=== PATIENT | female | born 1995 | race Caucasian/White ===

== ENCOUNTER → 2017-10-21 | Outpatient (CLI) | payer MEDICAID | LOC: COL.RAD 10-15 14:45 | DX: D48.0 Neoplasm of uncertain behavior of bone and articular cartilage (principal) | CPT/HCPCS: A9585 ==

== ENCOUNTER → 2017-11-30 | Outpatient (CLI) | payer MEDICAID | LOC: COL.RAD 14:11 | DX: N88.8 Other specified noninflammatory disorders of cervix uteri (principal); Z97.5 Presence of (intrauterine) contraceptive device ==

== ENCOUNTER 2018-04-28 09:30 | Outpatient (RCR) | payer MEDICAID | END 2018-05-01 | disposition home or self-care (01) | LOC: MKS.ESL.PT | DX: Z47.89 Encounter for other orthopedic aftercare (principal); Z86.018 Personal history of other benign neoplasm ==

== ENCOUNTER 2018-05-26 09:15 | Outpatient (RCR) | payer MEDICAID | END 2018-06-28 15:57 | disposition home or self-care (01) | LOC: MKS.ESL.PT 09:15 | DX: Z48.3 Aftercare following surgery for neoplasm (principal); C40.22 Malignant neoplasm of long bones of left lower limb ==

== ENCOUNTER 2018-10-24 09:30 | Outpatient (RCR) | payer MEDICAID | END 2018-10-30 | disposition still patient (30) | LOC: MKS.ESL.PT | DX: S83.242D Other tear of medial meniscus, current injury, left knee, subsequent encounter (principal) ==

== ENCOUNTER 2018-12-14 09:00 | Outpatient (RCR) | payer MEDICAID | END 2019-01-29 | disposition still patient (30) | LOC: MKS.ESL.PT | DX: M76.62 Achilles tendinitis, left leg (principal) ==

== ENCOUNTER 2019-02-02 08:00 | Outpatient (RCR) | payer MEDICAID | END 2019-03-27 12:29 | disposition home or self-care (01) | LOC: MKS.ESL.PT 08:00 | DX: M76.62 Achilles tendinitis, left leg (principal) ==

== ENCOUNTER → 2020-01-24 | Outpatient (CLI) | payer MEDICAID | LOC: COL.RAD 01-19 13:30 | DX: J32.1 Chronic frontal sinusitis (principal) ==

== ENCOUNTER → 2020-04-02 | Outpatient (CLI) | payer MEDICAID | LOC: ZCOL.LAB 16:55 | DX: J02.9 Acute pharyngitis, unspecified (principal); Z20.828 Contact with and (suspected) exposure to other viral communicable diseases ==

== ENCOUNTER 2020-07-31 12:45 | Outpatient (RCR) | payer OTHER | END 2020-10-15 | disposition home or self-care (01) | LOC: WSOH | DX: S46.912A Strain of unspecified muscle, fascia and tendon at shoulder and upper arm level, left arm, initial encounter (principal); J45.909 Unspecified asthma, uncomplicated; D48.1 Neoplasm of uncertain behavior of connective and other soft tissue; M65.80 Other synovitis and tenosynovitis, unspecified site; Z90.89 Acquired absence of other organs; Z98.890 Other specified postprocedural states; Z87.59 Personal history of other complications of pregnancy, childbirth and the puerperium; Y99.0 Civilian activity done for income or pay ==

== ENCOUNTER → 2020-10-23 | Outpatient (CLI) | payer MEDICAID | LOC: COL.RAD 10:24 | DX: M97.8XXA Periprosthetic fracture around other internal prosthetic joint, initial encounter (principal); Z96.652 Presence of left artificial knee joint; W19.XXXA Unspecified fall, initial encounter; Z98.890 Other specified postprocedural states ==

== ENCOUNTER → 2021-05-23 | Outpatient (CLI) | payer MEDICAID | LOC: MC.RAD 05-22 07:00 | DX: N63.10 Unspecified lump in the right breast, unspecified quadrant (principal) ==

== ENCOUNTER 2022-02-18 09:21 | Emergency (ER) | payer MEDICAID ==
[~2022-02-18] VITALS: Ht 157.5 cm; Wt 88.6 kg
[2022-02-18 09:31] VITALS: TEMP 98.2
[2022-02-18 11:20] VITALS: BP 128/75; PULSE 82
== END 2022-02-18 11:20 | disposition home or self-care (01) ==
LOC: COL.ER 09:21
DX: M79.89 Other specified soft tissue disorders (principal); M79.662 Pain in left lower leg; M25.462 Effusion, left knee; Z98.890 Other specified postprocedural states

== ENCOUNTER → 2022-02-18 | Outpatient (CLI) | payer MEDICAID | LOC: COL.RAD 11:35 | DX: M79.605 Pain in left leg (principal); Z96.652 Presence of left artificial knee joint ==

== ENCOUNTER → 2022-02-19 | Outpatient (CLI) | payer MEDICAID ==
[2022-02-19 13:27] LABS: BASO % 0.5 % (0.0-2.0); EOS # 0.2 K/mm3 (0.0-0.7); EOS % 2.4 % (0.0-4.0); GRAN # 5.1 K/mm3 (1.4-6.5); GRAN % 63.6 % (42.2-75.2); HEMATOCRIT 45.5 % (37.0-47.0); HEMOGLOBIN 15.1 g/dl (12.5-16.0); LYMPH # 2.2 K/mm3 (1.2-3.4); LYMPH % 27.6 % (20.0-51.0); MEAN CELL VOLUME 89 fl (80.0-100.0); MEAN CORPUSCULAR HEMOGLOBIN 30 pg (27-31); MEAN CORPUSCULAR HGB CONC 33 g/dl (33.0-37.0); MONO # 0.4 K/mm3 (0.1-0.6); MONO % 5.5 % (1.7-9.3); PLATELET COUNT 275 K/mm3 (130-400); RED BLOOD COUNT 5.12 M/mm3 (4.10-5.30); REDCELL DISTRIBUTION WIDTH-CV 11.9 % (11.5-14.5)
== END ==
LOC: COL.LAB 12:11
PROVIDERS: Orthopaedic Surgery
DX: Z96.652 Presence of left artificial knee joint (principal)

== ENCOUNTER → 2022-02-26 | Outpatient (CLI) | payer MEDICAID | LOC: COL.VAS 11:12 | DX: I82.812 Embolism and thrombosis of superficial veins of left lower extremity (principal) ==

== ENCOUNTER → 2022-03-06 | Outpatient (CLI) | payer MEDICAID | LOC: COL.VAS 10:00 | DX: I82.812 Embolism and thrombosis of superficial veins of left lower extremity (principal) ==

== ENCOUNTER → 2023-07-14 | Outpatient (CLI) | payer MEDICAID | LOC: MC.RAD 09:43 | DX: N63.11 Unspecified lump in the right breast, upper outer quadrant (principal) ==

== ENCOUNTER 2023-07-29 14:27 | Outpatient (RCR) | payer OTHER | END 2023-08-19 | disposition home or self-care (01) | LOC: WSOH | DX: S60.051D Contusion of right little finger without damage to nail, subsequent encounter (principal); Y99.0 Civilian activity done for income or pay; J45.909 Unspecified asthma, uncomplicated ==

== ENCOUNTER → 2023-07-30 | Outpatient (CLI) | payer MEDICAID ==
[~2023-07-30] MED LIST: Gadoterate 20 ML VIAL IV ONE
== END ==
LOC: COL.RAD 12:15
DX: M54.50 Low back pain, unspecified (principal)
CPT/HCPCS: A9575